=== PATIENT | male | born 1955 | race Caucasian/White ===

== ENCOUNTER 2024-03-02 07:26 | Day surgery (SDC) | payer MEDICARE, BC ==
[2024-03-02] MEDS: Lactated Ringers 1,000 ML IV SCH (07:39)
[2024-03-02] MEDS ORDERED: Ketamine 200 MG/20 ML MDV ONE (08:00)
[2024-03-02] MEDS ORDERED: Propofol 200 MG/20 ML SDV ONE ×3 (08:00)
[2024-03-02] MEDS ORDERED: Midazolam 1 MG/ML 2 ML SDV ONE (08:00)
[2024-03-02] MEDS ORDERED: fentaNYL 50 MCG/ML SDV ONE (08:00)
[2024-03-02 10:18] VITALS: BP 122/73; PULSE 50
== END 2024-03-02 10:10 | disposition home or self-care (01) ==
LOC: CC.SDS 07:26
PROVIDERS: ATTEND Family Medicine
DX: Z12.11 Encounter for screening for malignant neoplasm of colon (principal); D12.0 Benign neoplasm of cecum; D12.2 Benign neoplasm of ascending colon; D12.4 Benign neoplasm of descending colon; D12.5 Benign neoplasm of sigmoid colon; D12.7 Benign neoplasm of rectosigmoid junction; K63.5 Polyp of colon; K62.1 Rectal polyp; I10 Essential (primary) hypertension; F41.8 Other specified anxiety disorders; Z87.891 Personal history of nicotine dependence; Z79.899 Other long term (current) drug therapy
CPT/HCPCS: 00811; 45381; 45385; 88305; J2250; J2704; J3010; J3490; J7120

== ENCOUNTER 2024-11-17 10:16 | Emergency (ER) | payer MEDICARE, BC ==
[2024-11-17 11:07] VITALS: BP 153/85; PULSE 79
[2024-11-17 11:19] LABS: BASOPHILS ABSOLUTE AUTO 0.06 10^3/uL (0.00-0.50); EOSINOPHILS ABSOLUTE AUTO 0.43 10^3/uL (0.00-1.50); EOSINOPHILS PERCENT AUTO 6.9 % (0-6); HEMATOCRIT 44.2 % (42.0-52.0); HEMOGLOBIN 15.2 g/dL (14.0-18.0); IMMATURE GRAN ABSOLUTE AUTO 0.01 10^3/uL (0.00-0.49); IMMATURE GRAN PERCENT AUTO 0.2 % (0.0-4.9); LYMPHOCYTES ABSOLUTE AUTO 1.83 10^3/uL (0.60-5.00); LYMPHOCYTES PERCENT AUTO 29.4 % (24-44); MEAN CORPUSCULAR HEMOGLOBIN 32.4 pg (27.0-32.0); MEAN CORPUSCULAR HGB CONC 34.4 g/dL (32.0-36.0); MEAN CORPUSCULAR VOLUME 94.2 fL (83.0-97.0); MONOCYTES ABSOLUTE AUTO 0.61 10^3/uL (0.00-1.50); MONOCYTES PERCENT AUTO 9.8 % (0-10); NEUTROPHILS ABSOLUTE AUTO 3.28 x10^3/uL (1.80-8.00); NEUTROPHILS PERCENT AUTO 52.7 % (41-71); PLATELET COUNT,PLT 189 10^3/uL (150-400); RED BLOOD CELL COUNT 4.69 x10^6/uL (4.50-6.00); WHITE BLOOD CELL COUNT,WBC 6.2 10^3/uL (4.0-11.0)
[2024-11-17 11:22] LABS: APPEARANCE,URINE CLEAR (CLEAR); BILIRUBIN,URINE NEGATIVE (NEGATIVE); COLOR,URINE YELLOW (YELLOW); GLUCOSE,URINE NEGATIVE (NEGATIVE); KETONES,URINE NEGATIVE (NEGATIVE); LEUKOCYTE ESTERASE,URINE NEGATIVE (NEGATIVE); NITRITE,URINE NEGATIVE (NEGATIVE); OCCULT BLOOD,URINE MODERATE (NEGATIVE); PH,URINE 5.5 (4.5-8.0); PROTEIN,URINE 30 mg/dL (NEGATIVE); UROBILINOGEN,URINE 0.2 EU/dL (0.2-1.0)
[2024-11-17 11:30] LABS: BACTERIA,URINE NOT SEEN /HPF (NOT SEEN); WBC,URINE 0-5 /HPF (0-5)
[2024-11-17 11:33] LABS: ALANINE AMINOTRANSFERASE,ALT 31 U/L (12-78); ALBUMIN 3.7 g/dL (3.4-5.0); ALKALINE PHOSPHATASE 75 U/L (46-116); ASPARTATE AMNIOTRANSFERASE,AST 16 U/L (15-37); BILIRUBIN TOTAL 0.7 mg/dL (0.0-1.0); BLOOD UREA NITROGEN,BUN 17 mg/dL (7-18); CALCIUM 9.3 mg/dL (8.4-10.1); CARBON DIOXIDE,CO2 30 mmol/L (21-32); CHLORIDE,CL 105 mEq/L (98-106); CREATININE 1.3 mg/dL (0.7-1.3); GLUCOSE RANDOM 104 mg/dL (75-99); LIPASE 47 U/L (16-77); POTASSIUM,K 4.5 mEq/L (3.5-5.0); PROTEIN TOTAL,TP 6.9 g/dL (6.4-8.2); SODIUM,NA 141 mEq/L (136-145)
[2024-11-17 11:35] LABS: ESTIMATED GFR 60 mL/min (>=60)
[2024-11-17 11:36] LABS: C-REACTIVE PROTEIN < 0.50 mg/dL (<=0.50)
[2024-11-17] MEDS: Iopamidol 755 Mg/ML 100 ML Bottle IVPUSH ONE (11:52)
[2024-11-17] MEDS: Sodium Chloride 0.9% 1,000 ML IV ONE (11:57)
[2024-11-17] MEDS: Ketorolac 30 MG/ML SDV IVPUSH ONE (12:49)
[2024-11-17] MEDS: Take Home: Ketorolac 10 MG Tab, 4 Tab Pack PO ONE (13:12)
[2024-11-17] MEDS: Tamsulosin 0.4 MG Cap.ER PO STA (13:13)
[2024-11-17] MEDS: Tamsulosin 0.4 MG Cap.ER PO ONE (13:13)
[2024-11-17] MEDS: Take Home: Ketorolac 10 MG Tab, 4 Tab Pack ONE (13:58)
== END 2024-11-17 14:00 | disposition home or self-care (01) ==
LOC: CC.ED 10:16
DX: N13.2 Hydronephrosis with renal and ureteral calculous obstruction (principal); Z79.899 Other long term (current) drug therapy
CPT/HCPCS: 36415; 74177; 80053; 81001; 83690; 85025; 86140; 96374; 99284; A9270; J1885; J7030; Q9967